=== PATIENT | male | born 1955 | race Asian ===

== ENCOUNTER → 2019-10-20 | Outpatient (CLI) | payer BC | END | disposition home or self-care (01) | LOC: CFH 09:17 | PROVIDERS: ATTEND Internal Medicine | DX: M17.0 Bilateral primary osteoarthritis of knee (principal); M25.762 Osteophyte, left knee; M17.11 Unilateral primary osteoarthritis, right knee; M25.761 Osteophyte, right knee; M25.461 Effusion, right knee; M47.9 Spondylosis, unspecified ==

== ENCOUNTER 2020-06-12 13:39 | Emergency (ER) | payer BC ==
[~2020-06-12] VITALS: Ht 177.8 cm; Wt 116.7 kg
[2020-06-12] MEDS ORDERED: ASPIRIN 81 MG TABLET CHEW ONE (14:22)
[2020-06-12 14:28] LABS: BASOPHILS # (AUTO) 0.01 x10^3/uL (0-0.1); BASOPHILS % (AUTO) 0 % (0-1); EOSINOPHILS # (AUTO) 0.36 x10^3/uL (0-0.4); EOSINOPHILS % (AUTO) 8 % (1-7); LYMPHOCYTES # (AUTO) 1.72 x10^3/uL (1-3.4); LYMPHOCYTES % (AUTO) 40 % (22-44); MD NO; MEAN CORPUSCULAR HEMOGLOBIN 30.5 pg (27.5-34.5); MEAN CORPUSCULAR HGB CONC 33.4 g/dL (33.2-36.2); MEAN CORPUSCULAR VOLUME 91.3 fL (81-97); MONOCYTES # (AUTO) 0.29 x10^3/uL (0.2-0.8); MONOCYTES % (AUTO) 7 % (2-9); NEUTROPHILS # (AUTO) 1.94 x10^3/uL (1.8-6.8); NEUTROPHILS % (AUTO) 45 % (42-75); PLATELET COUNT 161 x10^3/uL (130-400); RED BLOOD COUNT 5.63 x10^6/uL (4.38-5.82); RED CELL DISTRIBUTION WIDTH 14.3 % (9.4-14.8)
[2020-06-12] MEDS ORDERED: ASPIRIN 81 MG TABLET CHEW PO ONE (14:30)
--- NOTE | 2020-06-12 14:33 | NUR ---
PT PRESENTS TO ED WITH C/O STERNAL CHEST PAIN X 2 DAYS, INTERMITTENT, EXCERBATED WITH CHANGES IN POSITION. PT STATES HE IS UNSURE BUT THINKS ONSET WAS DURING EXERTION AT WORK. 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 PT HAS NOT TAKEN ANY ASPIRIN PRIOR TO ARRIVAL, PT MEDICATED PER EMAR WITH 162MG ASA. PT A&O, RESPS EVEN AND UNLABORED, NADN. AWAITING LAB AND XRAY RESULTS AT THIS TIME.
[2020-06-12 14:36] LABS: ALANINE AMINOTRANSFERASE 101 U/L (12-78); ALBUMIN 4.5 g/dL (3.4-5.0); ANION GAP 8 mmol/L (5-15); CALCIUM 9.7 mg/dL (8.5-10.1); CHLORIDE 108 mmol/L (98-107); CREATININE 1.13 mg/dL (0.7-1.3)
[2020-06-12 14:41] LABS: ALKALINE PHOSPHATASE 50 U/L (45-117); BILIRUBIN,TOTAL 0.5 mg/dL (0.2-1.0); TOTAL PROTEIN 7.6 g/dL (6.4-8.2); TROPONIN I < 0.015 ng/mL (0.000-0.045)
--- NOTE | 2020-06-12 15:00 | NUR ---
REPORT GIVEN TO RN'S BELLE WHO ARE ASSUMING CARE.
[2020-06-12 18:33] VITALS: BP 128/71
--- NOTE | 2020-06-12 18:34 | NUR ---
Patient given discharge instructions and they have confirmed that they understand the instructions. Patient ambulatory with steady gait.
== END 2020-06-12 18:35 | disposition home or self-care (01) ==
LOC: ED 16:02
DX: K76.0 Fatty (change of) liver, not elsewhere classified (principal); R07.89 Other chest pain; R10.13 Epigastric pain; I45.10 Unspecified right bundle-branch block; I44.4 Left anterior fascicular block
CPT/HCPCS: 36415; 71045; 76700; 80053; 83690; 84484; 85025; 93005; 99285